=== PATIENT | male | born 1970 | race Caucasian/White ===

== ENCOUNTER 2021-04-03 20:05 | Emergency (ER) | payer BC, OTHER ==
[2021-04-03] MEDS ORDERED: HYDROCODON-ACE1 EAC4 PO (21:33)
[2021-04-08] MEDS ORDERED: VALIUM5 MG PO (14:18)
[2021-04-08] MEDS ORDERED: HYDROCODON-ACE1 EAC6 PO (14:18)
== END 2021-04-03 22:33 | disposition home or self-care (01) ==
LOC: ER1 20:05
DX: S83.005A Unspecified dislocation of left patella, initial encounter (principal); Z79.82 Long term (current) use of aspirin; X50.1XXA Overexertion from prolonged static or awkward postures, initial encounter
CPT/HCPCS: 73552; 73564; 96372; 99283; J2270

== ENCOUNTER → 2021-04-05 | Outpatient (CLI) | payer BC, OTHER ==
[~2021-04-05] MED LIST: HYDROCODON-ACE1 EAC4 PO; HYDROCODON-ACE1 EAC6 PO; VALIUM5 MG PO
== END ==
LOC: KOH-I 12:30
DX: S86.812A Strain of other muscle(s) and tendon(s) at lower leg level, left leg, initial encounter (principal); M66.269 Spontaneous rupture of extensor tendons, unspecified lower leg; M70.52 Other bursitis of knee, left knee; M25.462 Effusion, left knee
CPT/HCPCS: 73721

== ENCOUNTER → 2021-04-08 | Day surgery (SDC) | payer BC, OTHER ==
[~2021-04-08] VITALS: Ht 198.1 cm; Wt 126.1 kg
[2021-04-08 09:49] LABS: HEMOGLOBIN 14.9 gm/dl (14.0-17.5); RED BLOOD COUNT 4.64 M/UL (4.20-5.50); WHITE BLOOD COUNT 8.3 K/UL (4.5-11.0)
[2021-04-08 10:04] LABS: BUN/CREATININE RATIO 19 (0-10)
== END | disposition home or self-care (01) ==
LOC: OR 08:36
PROVIDERS: Orthopaedic Surgery
DX: S86.812A Strain of other muscle(s) and tendon(s) at lower leg level, left leg, initial encounter (principal); E78.5 Hyperlipidemia, unspecified; Z20.822 Contact with and (suspected) exposure to COVID-19; W10.9XXA Fall (on) (from) unspecified stairs and steps, initial encounter
CPT/HCPCS: 36415; 80048; 85027; C9399; J0690; J1100; J1170; J1885; J2001; J2250; J2405; J2704; J2795; J3010; J7120; U0002